=== PATIENT | male | born 1995 | race Caucasian/White ===

== ENCOUNTER 2018-04-20 22:09 | Emergency (ER) | payer SELFPAY ==
[2018-04-20] MEDS ORDERED: Ketorolac Tromethamine 30 MG/ML VIAL ONE (22:35)
== END 2018-04-20 22:56 | disposition home or self-care (01) ==
LOC: SCSER 22:09
DX: K08.89 Other specified disorders of teeth and supporting structures (principal); I10 Essential (primary) hypertension
CPT/HCPCS: 96372; J1885

== ENCOUNTER 2018-05-06 00:52 | Emergency (ER) | payer SELFPAY ==
[2018-05-06] MEDS ORDERED: Ketorolac Tromethamine 30 MG/ML VIAL ONE (01:02)
== END 2018-05-06 01:25 | disposition home or self-care (01) ==
LOC: SCSER 00:52
DX: K08.89 Other specified disorders of teeth and supporting structures (principal)
CPT/HCPCS: 96372; J1885

== ENCOUNTER 2018-06-14 20:17 | Emergency (ER) | payer SELFPAY ==
[2018-06-14] MEDS ORDERED: Ketorolac Tromethamine 30 MG/ML VIAL ONE (21:39)
[2018-06-14] MEDS ORDERED: Clindamycin 150 MG CAP ONE (21:39)
== END 2018-06-14 22:05 | disposition home or self-care (01) ==
LOC: SCSER 20:17
DX: K02.9 Dental caries, unspecified (principal); K08.89 Other specified disorders of teeth and supporting structures
CPT/HCPCS: 96372; J1885

== ENCOUNTER 2018-06-19 23:39 | Emergency (ER) | payer SELFPAY ==
[2018-06-20] MEDS ORDERED: Lidocaine 1% PF 5 ML VIAL ONE (00:23)
[2018-06-20] MEDS ORDERED: Azithromycin 250 MG TAB ONE (00:23)
[2018-06-20] MEDS ORDERED: cefTRIAXone\\ROCEPHIN 250 MG VIAL ONE (00:23)
[2018-06-20 00:33] LABS: Bilirubin Negative (Negative); Blood, Urine Negative (Negative); Clarity Clear (Clear); Glucose, Urine (Dipstick) Negative (Negative); Leukocyte Negative (Negative); Nitrite Negative (Negative); Protein, Urine (Dipstick) Negative (Neg-Trace); Urobilinogen 0.2 mg/dL (0.2-1.0)
[2018-06-22 20:25] LABS: Chlamydia by PCR DETECTED (NotDetected); GC by PCR Not Detected (NotDetected)
== END 2018-06-20 00:49 | disposition home or self-care (01) ==
LOC: SCSER 23:39
DX: Z20.2 Contact with and (suspected) exposure to infections with a predominantly sexual mode of transmission (principal)
CPT/HCPCS: 81003; 87491; 87591; 96372; J0696; J2001

== ENCOUNTER 2018-06-25 18:18 | Emergency (ER) | payer SELFPAY ==
[2018-06-25] MEDS ORDERED: Azithromycin 250 MG TAB ONE (19:31)
== END 2018-06-25 19:33 | disposition home or self-care (01) ==
LOC: SCSER 18:18
DX: B35.6 Tinea cruris (principal)
CPT/HCPCS: 99283

== ENCOUNTER 2018-07-04 23:06 | Emergency (ER) | payer SELFPAY | END 2018-07-04 23:24 | disposition home or self-care (01) | LOC: SCSER 23:06 | DX: K08.9 Disorder of teeth and supporting structures, unspecified (principal) | CPT/HCPCS: 99282 ==

== ENCOUNTER 2018-08-19 22:28 | Emergency (ER) | payer SELFPAY ==
[2018-08-19] MEDS ORDERED: Ketorolac Tromethamine 30 MG/ML VIAL ONE (23:20)
== END 2018-08-19 23:49 | disposition home or self-care (01) ==
LOC: SCSER 22:28
DX: K02.9 Dental caries, unspecified (principal)
CPT/HCPCS: 96372; J1885

== ENCOUNTER 2019-03-08 01:42 | Emergency (ER) | payer SELFPAY ==
[2019-03-08] MEDS ORDERED: Lidocaine 1% (PF) 30 ML VIAL ONE (03:38)
[2019-03-08] MEDS ORDERED: Bupivacaine 0.5% 10 ML VIAL ONE ×2 (03:38→03:40)
[2019-03-08] MEDS ORDERED: Lidocaine 1% w/Epinephrine 1:100K 20 ML VIAL ONE (03:40)
== END 2019-03-08 04:01 | disposition home or self-care (01) ==
LOC: ERS 01:42
DX: K02.9 Dental caries, unspecified (principal); R09.81 Nasal congestion
CPT/HCPCS: 64400; J2001; J3490